=== PATIENT | male | born 1950 | race Caucasian/White ===

== ENCOUNTER 2016-10-22 13:04 | Observation (INO) | payer MEDICARE, BC ==
[2016-10-22] MEDS ORDERED: Acetaminophen TAB* 325 MG PO PRN (14:06)
[2016-10-22] MEDS ORDERED: NS 0.9% 1000 ML* 1,000 ML IV SCH (14:15)
[2016-10-22 15:29] LABS: Hematocrit 42 % (42-52); Hemoglobin 14.1 g/dl (14.0-18.0); Mean Corpuscular HGB Conc 33 g/dl (31-36); Mean Corpuscular Hemoglobin 33 pg (27-31); Mean Corpuscular Volume 98 fL (80-94); Mean Platelet Volume 7 um3 (7.4-10.4); Red Blood Count 4.32 10^6/ul (4.0-5.4); Red Cell Distribution Width 13 % (10.5-15); White Blood Count 13.5 10^3/ul (3.5-10.8)
[2016-10-22 16:00] LABS: Albumin 3.9 g/dL (3.2-5.2); BUN/Creatinine Ratio 11.5 (8-20); C Reactive Protein 68.15 mg/L (< 5.00); Calcium 9.4 mg/dL (8.6-10.3); EGFR African American 83.2 (>60); EGFR Non-African American 64.7 (>60); Globulin 3.8 g/dL (2-4); Potassium 4.5 mmol/L (3.5-5.0); Total Protein 7.7 g/dL (6.4-8.9)
--- NOTE | 2016-10-22 16:12 | ADMNOTE ---
Subjective Date of Service: 10/22/16 Interval History: ADMISSION HISTORY AND PHYSICAL EXAM: Allergies Allergy/AdvReac Type Severity Reaction Status Date / Time Iohexol [From Omnipaque] Allergy Mild Rash And Verified 12/16/15 15:58 Itching Shellfish Allergy Allergy Rash And Verified 12/16/15 15:58 Itching Iodine AdvReac Rash And Verified 12/16/15 15:58 Itching COCONUT Allergy ANAPHYLAXIS Uncoded 12/16/15 15:58 ENVIRONMENTAL/SEASONAL Allergy SNEEZE Uncoded 12/16/15 15:58 HAYFEVER EXTREME HEAT AdvReac SEVERE Uncoded 12/16/15 15:58 HYPERTENSION Home Medications Medication Instructions Recorded Confirmed Type Gabapentin CAP(*) [Neurontin 600 mg PO TID 11/21/12 07/14/14 History CAP(*)] Omeprazole CAP* [PriLOSEC CAP*] 20 mg PO BID 11/21/12 07/14/14 History Polyethylene Glycol 3350* 17 gm PO QAM 11/21/12 07/14/14 History [Miralax*] Irbesartan 150 mg PO QAM 02/05/13 07/14/14 History traMADol TAB* [Ultram*] 50 mg PO BID 02/05/13 07/14/14 History Lidocaine PATCH 5%* [Lidoderm 5% 2 patch TRANSDERM DAILY 02/18/13 07/14/14 History Patch*] Alfuzosin ER (NF) [Uroxatral (NF)] 10 mg PO QPM 06/21/14 07/14/14 History Tramadol-Acetaminophen [Tramadol 1 tab PO QPM 06/24/14 07/14/14 History Hydrochloride/AC 37.5-325 mg] HPI: The patient's main c/o is difficulty voiding and voiding small amounts for the past few weeks. He has also had pain 15 min after eating and some pain in the left flank. He has had nausea and states he has lost 9 lbs in the past few weeks. He was Family History: Findings - Mother age 93. One sister A&W. Social History: Findings - Lives with his who is his SDM. No children. Smoked in college. No alcohol abuse. Past Medical History: Unchanged from Admission - C-spine surgery,appy, ureteral stent, L arm tendon repair Review of Systems - Measurements Intake and Output: Intake and Output Last 24 Hours 10/20/16 10/21/16 10/22/16 10/23/16 06:59 06:59 06:59 06:59 Intake Total 0 Balance 0 Intake: Oral 0 Other: # Bowel Movements 0 - Review of Systems Constitutional Symptoms: Positive: Weight Loss - 9 lbs Dermatology: Positive: Normal HEENT: Positive: Normal Eyes: Positive: Normal Thyroid: Positive: Normal Pulmonary: Positive: Normal Cardiology: Positive: Normal Gastroenterology: Positive: Abdominal Pain, Anorexia Genital - Urinary: Positive: Other - decreased urine volume Musculoskeletal: Negative: Joint Pain, Joint Stiffness, Arthritis, Osteoporosis, Low Back Pain , Sciatica, Joint Deformities, Kyphoscoliosis, Other Endocrinology: Positive: Normal Hematologic/Lymphatic: Negative: Anemia, Easy Brusing, Hx Leukemia, Hx Lymphoma, Use of Anticoagulant, Use of Antiplatelet Drugs, Other Neurology: Positive: Normal Psychiatry: Positive: Normal Allergic/Immunologic: Negative: Hx Anaphylaxis, Hx Angioedema, Hx Environmental, Hx Seasonal, Athsma, Hx HIV, Immunocompromise, Swollen Glands LymphNodes, Other Objective Active Medications: Acetaminophen (Tylenol Tab*) 650 mg PO Q6H PRN PRN Reason: pain/fever Sodium Chloride (Ns 0.9% 1000 Ml*) 1,000 mls @ 125 mls/hr IV PER RATE THO Vital Signs 10/22/16 13:59 Temperature 97.9 F Pulse Rate 86 Respiratory 14 Rate Blood Pressure 134/81 (mmHg) O2 Sat by Pulse 96 Oximetry Oxygen Devices in Use Now: None Appearance: Alert, sitting up in bed. In good spirits. Looks comfortable. Eyes: No Scleral Icterus Ears/Nose/Mouth/Throat: Clear Oropharnyx, Mucous Membranes Moist Neck: NL Appearance and Movements; NL JVP, No Thyroid Enlargement, Masses Respiratory: Symmetrical Chest Expansion and Respiratory Effort, Clear to Auscultation, Clear to Percussion Cardiovascular: NL Sounds; No Murmurs; No JVD, RRR, No Edema, - Abdominal: NL Sounds; No Tenderness; No Distention, No Hepatosplenomegaly, - Extremities: No Edema, No Clubbing, Cyanosis, - Skin: No Rash or Ulcers, No Nodules or Sclerosis, - Neurological: Alert and Oriented x 3, NL Sensation Result Diagrams: 10/22/16 15:15 10/22/16 15:15 Assess/Plan/Problems-Billing Assessment: - Patient Problems (1) Flank pain Current Visit: Yes Status: Acute Code(s): R10.9 - UNSPECIFIED ABDOMINAL PAIN SNOMED Code(s): 548951419 Comment: US L kidney ordered. (2) Prostatitis Current Visit: Yes Status: Acute Code(s): N41.9 - INFLAMMATORY DISEASE OF PROSTATE, UNSPECIFIED SNOMED Code(s): 9970922 Comment: Continue po cipro. I will discuss with Dr. Tse. PVR 60 ml by bladder scan. (3) HTN (hypertension) Current Visit: Yes Status: Acute Code(s): I10 - ESSENTIAL (PRIMARY) HYPERTENSION SNOMED Code(s): 71208028 Comment: Continue home dose irbesartan (auto sub losartan). (4) Chronic pain Current Visit: Yes Status: Acute Code(s): G89.29 - OTHER CHRONIC PAIN SNOMED Code(s): 21814833 Comment: Continue home dose gabapentin, tramadol.
[2016-10-22 16:48] LABS: Erythrocyte Sed Rate 74 mm/Hr (0-40)
[2016-10-22] MEDS: traMADol TAB* 50 MG PO SCH ×2 (16:58→20:55)
[2016-10-22] MEDS: Acetaminophen TAB* 325 MG PO SCH (16:59)
[2016-10-22] MEDS ORDERED: Gabapentin CAP(*) 300 MG PO ONE (17:00)
--- NOTE | 2016-10-22 17:55 | RAD ---
Indication: LEFT flank and abdominal pain. Comparison: October 16, 2016 CT. Technique: LEFT unilateral renal ultrasound. Report: 12.7 x 5.4 x 4.6 cm LEFT kidney with variant lobular cortical contour unchanged from the prior CT and symmetric with the contralateral kidney on CT. Normal renal cortical echogenicity. No conspicuous focal renal lesions, stones, or hydronephrosis. No perinephric fluid evident. IMPRESSION: Negative LEFT unilateral renal ultrasound.
[2016-10-22] MEDS ORDERED: TRAMADOL ACETAMINOPHEN PO SCH (18:00)
[2016-10-22] MEDS ORDERED: ALFUZOSIN 10 MG PO SCH (18:00)
[2016-10-22] MEDS ORDERED: [UNRECOGNIZED DRUG - OTHER] PO SCH (18:00)
[2016-10-22] MEDS: Ciprofloxacin TAB* 500 MG PO SCH (20:55)
[2016-10-22] MEDS: Omeprazole CAP* 20 MG PO SCH (20:55)
[2016-10-22] MEDS: Gabapentin CAP(*) 300 MG PO SCH (20:56)
[2016-10-22] MEDS ORDERED: Lidocaine Patch REMOVE* 1 NOTE MISC PATCH OFF SCH (21:00)
[2016-10-22] MEDS ORDERED: Gabapentin CAP(*) 300 MG PO SCH (21:00)
[2016-10-22 22:19] LABS: Urine Bacteria Absent (Absent); Urine Bilirubin Negative (Negative); Urine Glucose Negative (Negative); Urine Nitrite Negative (Negative)
[2016-10-23 07:46] VITALS: BP 129/74
[2016-10-23] MEDS: Gabapentin CAP(*) 300 MG PO SCH ×2 (07:56→16:13)
[2016-10-23] MEDS: Omeprazole CAP* 20 MG PO SCH (07:57)
[2016-10-23] MEDS: traMADol TAB* 50 MG PO SCH ×2 (07:57→16:08)
[2016-10-23] MEDS: Ciprofloxacin TAB* 500 MG PO SCH (07:58)
[2016-10-23] MEDS ORDERED: Losartan TAB* 25 MG PO SCH (09:00)
[2016-10-23] MEDS ORDERED: Lidocaine PATCH 5%* 1 PATCH TRANSDERM SCH (09:00)
[2016-10-23] MEDS ORDERED: Polyethylene Glycol 3350* 17 GM PACKET PO SCH (09:00)
--- NOTE | 2016-10-23 11:23 | DCNOTE ---
Subjective Date of Service: 10/23/16 Interval History: Pain control adequate. Patient again states he has to push on his bladder to void. No new c/o. Family History: Findings - Mother age 93. One sister A&W. Social History: Findings - Lives with his who is his SDM. No children. Smoked in college. No alcohol abuse. Past Medical History: Unchanged from Admission - C-spine surgery,appy, ureteral stent, L arm tendon repair Objective Active Medications: Acetaminophen (Tylenol Tab*) 650 mg PO Q6H PRN PRN Reason: pain/fever Acetaminophen (Tylenol Tab*) 325 mg PO 1600 [facility] Last Admin: 10/22/16 16:59 Dose: 325 mg Alfuzosin HCl (Uroxatral (Nf)) 10 mg PO QPM [facility] Last Admin: 10/22/16 19:14 Dose: 10 mg Ciprofloxacin (Cipro Tab*) 500 mg PO Q12HR [facility] Last Admin: 10/23/16 07:58 Dose: 500 mg Gabapentin (Neurontin Cap(*)) 600 mg PO 0900,1600,2100 [facility] Last Admin: 10/23/16 07:56 Dose: 600 mg Lidocaine (Lidoderm 5% Patch*) 2 patch TRANSDERM DAILY [facility] Last Admin: 10/23/16 08:11 Dose: Not Given Omeprazole (Prilosec Cap*) 20 mg PO BID [facility] Last Admin: 10/23/16 07:57 Dose: 20 mg Pharmacy Profile Note (Lidocaine Patch Remove*) 1 note PATCH OFF 2100 [facility] Last Admin: 10/22/16 20:58 Dose: Not Given Polyethylene Glycol/Electrolytes (Miralax*) 17 gm PO QAM [facility] Last Admin: 10/23/16 07:56 Dose: 17 gm Tramadol HCl (Ultram*) 50 mg PO BID [facility] Last Admin: 10/23/16 07:57 Dose: 50 mg Tramadol HCl (Ultram*) 50 mg PO 1600 [facility] Last Admin: 10/22/16 16:58 Dose: 50 mg Vital Signs 10/22/16 10/22/16 10/22/16 13:32 13:59 16:58 Temperature 97.9 F Pulse Rate 86 Respiratory 18 14 17 Rate Blood Pressure 134/81 (mmHg) O2 Sat by Pulse 96 Oximetry 10/22/16 10/22/16 10/22/16 17:58 18:58 19:33 Temperature 97.8 F Pulse Rate 77 Respiratory 18 16 20 Rate Blood Pressure 144/65 (mmHg) O2 Sat by Pulse 96 Oximetry 10/22/16 10/22/16 10/22/16 20:00 20:55 20:56 Temperature Pulse Rate Respiratory 19 18 18 Rate Blood Pressure (mmHg) O2 Sat by Pulse Oximetry 10/22/16 10/22/16 10/22/16 22:55 22:56 23:47 Temperature 97.9 F Pulse Rate 76 Respiratory 18 19 16 Rate Blood Pressure 144/74 (mmHg) O2 Sat by Pulse 96 Oximetry 10/23/16 10/23/16 10/23/16 03:46 07:24 07:56 Temperature 98.2 F 97.9 F Pulse Rate 80 82 Respiratory 16 18 16 Rate Blood Pressure 125/75 129/74 (mmHg) O2 Sat by Pulse 96 95 Oximetry 10/23/16 10/23/16 07:57 08:00 Temperature Pulse Rate Respiratory 16 18 Rate Blood Pressure (mmHg) O2 Sat by Pulse Oximetry Oxygen Devices in Use Now: None Appearance: Alert, partly up in bed. In good spirits. Looks comfortable. Eyes: No Scleral Icterus Respiratory: Symmetrical Chest Expansion and Respiratory Effort, Clear to Auscultation, Clear to Percussion Cardiovascular: NL Sounds; No Murmurs; No JVD, RRR, No Edema, - Extremities: No Edema, No Clubbing, Cyanosis, - Skin: No Rash or Ulcers, No Nodules or Sclerosis, - Neurological: Alert and Oriented x 3, NL Sensation Result Diagrams: 10/22/16 15:15 10/22/16 15:15 Microbiology and Other Data: Microbiology 10/22/16 15:15 Aerobic Blood Culture - Final Blood Venous Bacillus Sp (Non-Anthracis) Assess/Plan/Problems-Billing Assessment: - Patient Problems (1) Flank pain Current Visit: Yes Status: Acute Code(s): R10.9 - UNSPECIFIED ABDOMINAL PAIN SNOMED Code(s): 864582210 Comment: US L kidney negative. (2) Prostatitis Current Visit: Yes Status: Acute Code(s): N41.9 - INFLAMMATORY DISEASE OF PROSTATE, UNSPECIFIED SNOMED Code(s): 7211571 Comment: Continue po cipro. Discussed with Dr. Tse. PVR 60 ml by bladder scan 10/22, repeat pending 10/23. (3) HTN (hypertension) Current Visit: Yes Status: Acute Code(s): I10 - ESSENTIAL (PRIMARY) HYPERTENSION SNOMED Code(s): 37497849 Comment: Continue home dose irbesartan (auto sub losartan). (4) Chronic pain Current Visit: Yes Status: Acute Code(s): G89.29 - OTHER CHRONIC PAIN SNOMED Code(s): 22174559 Comment: Continue home dose gabapentin, tramadol. (5) Prostatism Current Visit: Yes Status: Acute Code(s): N40.0 - BENIGN PROSTATIC HYPERPLASIA WITHOUT LOWER URINRY TRACT SYMP SNOMED Code(s): 70171993 Comment: Pt states tamsulosin made him pass out. Status and Disposition: Discharge this afternoon. Appt Dr. Tse November 25, 9 AM.
[2016-10-23] MEDS: Acetaminophen TAB* 325 MG PO SCH (16:09)
--- NOTE | 2016-10-23 19:03 | CONS ---
CONSULTATION NOTE: DATE OF CONSULT: 10/23/16 LOCATION: The patient is in room number 414. HISTORY OF PRESENT ILLNESS: I was asked by Dr. Du, from the hospitalist service, to see this 66-year-old white male because of acute prostatitis. I have been following Mr. Terry for the last 3 years because of recurrent prostatitis, bladder outlet obstruction and history of renal calculus disease. He was first evaluated in our office in December 2013 because of recurrent prostatitis. At that time he was treated with a course of Bactrim with improvement in his symptoms. Because of bladder outlet obstruction symptoms, he was placed on tamsulosin 0.4 mg daily. He noticed improvement in his voiding; however, he had side effects, feeling lightheadedness and almost passing out. The tamsulosin was discontinued and he was shifted to alfuzosin 10 mg daily with good response and no side effects. In March 2014, he had an office cystoscopy which showed moderate prostate enlargement, but the bladder wall looked normal. He presented to the emergency room on 06/21/14 with a right renal colic and was noted to have a 7-mm calculus at the ureteropelvic junction. He had urgent placement of a right ureteral stent. Few weeks later he had shockwave lithotripsy of the stone with the stent removal. Followup renal ultrasound showed him to be stone free. The patient continued to be maintained on the alfuzosin with good response. He was last seen in my office 4 months ago and at that time, the rectal exam showed a moderately enlarged but non-suspicious prostate. His bladder ultrasound showed complete bladder emptying and his urinalysis was negative. He was supposed to have a follow-up PSA because of an elevated PSA of 5.4, but he did not have it done. For the last 2 to 3 weeks, the patient has been complaining of urgency, frequency, burning on urination and perineal discomfort and pain. He did not have any gross hematuria and did not have any fever or chills. He was evaluated by Dr. Martines who started him on a course of Bactrim. He apparently developed interstitial nephritis on the Bactrim with decreased renal function. This resolved spontaneously after stopping his Bactrim and he was shifted to Cipro. Because of the persistent voiding symptoms with urgency and frequency, he was admitted yesterday for management. He had a renal ultrasound on admission, which was normal. His postvoid residual was about 70 cc. A consultation is being obtained for management of his prostatitis. His urine culture has been negative. His blood culture; however, is growing gram- positive cocci. I am not sure if this represents a true culture or is a skin contaminant. We will have to wait for the definitive culture result. Today, he reported some improvement in his voiding with less hesitancy, better stream, and feeling less perineal and scrotal pain and feeling he is emptying his bladder adequately. IMPRESSION: 1-The findings are consistent with prostatitis, which seems to be responding to Cipro. 2-Bladder outlet obstruction, on alfuzosin. PLAN: Plan is to continue with the same treatment. I recommended that the postvoid bladder ultrasound be repeated today to confirm his adequate bladder emptying. He will need to be maintained on the Cipro for at least another 2 weeks to clear up the prostatitis. He also will need to stay on the alfuzosin. I will follow him as an outpatient after his discharge, earlier if needed. [id number]/[facility] #: [id number] MTDD
--- NOTE | 2016-10-24 13:08 | DS ---
CC: Dr. Martines; Dr. Tse * DISCHARGE SUMMARY: DATE OF ADMISSION: 10/22/16 DATE OF DISCHARGE: 10/23/16 HISTORY OF PRESENT ILLNESS: This 66-year-old man was admitted because of his prostatitis. He complained of pain after drinking liquids. He complained of difficulty voiding and voiding small amounts. He also said he had some nausea and lost 9 pounds in the past few weeks. I note he had been given trimethoprim - sulfamethoxazole as an outpatient. He had a rise in his creatinine and potassium, and the medication was stopped after 2 days. He was then switched to ciprofloxacin which he has been on for about a day and a half to 2 days before admission. In the hospital, he had an ultrasound of the left kidney, which showed no significant abnormalities. Dr. Tse came and saw him. Dr. Tse has known him from previous office visits. He did not make any new recommendations. The patient will see Dr. Tse again in followup at 9 a.m. on 10/26/16. The patient had his oral ciprofloxacin continued while in the hospital. His pain control appeared adequate on his usual medications. The patient had a bladder scan on 10/22/16, having a postvoid residual of 60 mL. DISCHARGE DIAGNOSES: 1. Prostatitis. 2. Flank pain. 3. Hypertension. 4. Chronic pain syndrome. 5. Prostatism. DISCHARGE MEDICATIONS: 1. Ciprofloxacin 500 mg b.i.d. 2. Gabapentin 600 mg t.i.d. 3. Omeprazole 20 mg b.i.d. 4. Polyethylene glycol 17 g daily. 5. Tramadol 50 mg b.i.d. 6. Ultracet 1 daily at 4 p.m. 7. Lidocaine patch, 2 patches daily as prescribed. 8. Alfuzosin 10 mg h.s. [id number]/[facility] #: [id number] MTDD
== END 2016-10-23 17:10 | disposition home or self-care (01) ==
LOC: OBSVTOIN 13:17 → MED 13:17 → INTOOBSV 13:17
PROVIDERS: ADMIT Internal Medicine; ATTEND Internal Medicine
DX: N41.9 Inflammatory disease of prostate, unspecified (principal); R10.9 Unspecified abdominal pain; I10 Essential (primary) hypertension; G89.29 Other chronic pain; Z79.899 Other long term (current) drug therapy; Z88.8 Allergy status to other drugs, medicaments and biological substances; Z87.891 Personal history of nicotine dependence
CPT/HCPCS: 36415; 76775; 80053; 81003; 81015; 85025; 85652; 86140; 87040; 87077; 87205; A9270-GY; G0378

== ENCOUNTER 2018-01-13 23:13 | Observation (INO) | payer MEDICARE, BC ==
[2018-01-13] MEDS ORDERED: NS 0.9% 1000 ML* 1,000 ML IV ONE (23:15)
[2018-01-13] MEDS ORDERED: Ondansetron INJ* 2 MG/ML VIAL IV ONE (23:18)
[2018-01-13] MEDS ORDERED: Ketorolac INJ* 30 MG/ML 1 ML VIAL IV PUSH ONE (23:18)
--- NOTE | 2018-01-14 00:25 | RAD ---
EXAM: CT Abdomen and Pelvis Without Intravenous Contrast CLINICAL HISTORY: 67 years old, male; Pain; Abdominal pain; Flank; Other: Bilateral; Additional info: Fever, back pain TECHNIQUE: Axial computed tomography images of the abdomen and pelvis without intravenous contrast. All CT scans at this facility use at least one of these dose optimization techniques: automated exposure control; mA and/or kV adjustment per patient size (includes targeted exams where dose is matched to clinical indication); or iterative reconstruction. Coronal and sagittal reformatted images were created and reviewed. COMPARISON: A/P WO CT ABD/PEL W/O 10/16/2016 1:10 PM FINDINGS: Lung bases: There is minimal bibasilar atelectasis. ABDOMEN: Liver: Indeterminate low attenuating hepatic lesion in segment V measures 1 cm similar to prior study. Normal liver size. Gallbladder and bile ducts: Tiny calcified gallstones. No wall thickening or pericholecystic fluid. Pancreas: Normal. No ductal dilation. Spleen: Normal. No splenomegaly. Adrenals: Normal. No mass. Kidneys and ureters: Left upper pole simple renal cyst measures 1.7 cm (series 2, image 29) unchanged from prior study. Punctate nonobstructing renal calculus right lower pole. No pelvocaliectasis. Stomach and bowel: Incompletely distended grossly normal stomach. Normal caliber small bowel. Distal colonic diverticula without adjacent inflammatory changes or associated wall thickening. PELVIS: Appendix: Nonvisualized appendix with no secondary findings to suggest appendicitis. Bladder: Thin-walled bladder with no focal nodularity, perivesicular stranding, or calcifications. No stones. Reproductive: Moderate prostate enlargement. Normal seminal vesicles. ABDOMEN and PELVIS: Intraperitoneal space: Normal. No pneumoperitoneum. No ascities. Bones/joints: The spine demonstrates mild degenerative changes at multiple levels. Mild bilateral hip primary osteoarthritis. No fractures. No suspicious bone lesions. Soft tissues: Normal. No hernias. Vasculature: The aorta demonstrates moderate atherosclerotic calcification. No abdominal aortic aneurysm. Lymph nodes: Normal. No enlarged lymph nodes. IMPRESSION: 1. No CT findings to correlate with patient's symptomatology. Specifically no obstructing renal or ureteral calculi. 2. Simple left renal cyst and nonobstructing right renal calculi. 3. Cholelithiasis. 4. Distal colonic diverticulosis.
[2018-01-14 00:29] LABS: ABS Basophils 0.1 10^3/ul (0-0.2); ABS Eosinophils 0.1 10^3/ul (0-0.6); ABS Lymphocytes 0.8 10^3/ul (1.0-4.8); ABS Monocytes 0.7 10^3/ul (0-0.8); ABS Neutrophils 8.4 10^3/ul (1.5-7.7); ABS Nucleated RBC 0 10^3/ul; Eosinophil % 0.8 % (0-6); Hematocrit 41 % (42-52); Hemoglobin 14.6 g/dl (14.0-18.0); Lymphocyte % 7.6 % (25-47); Mean Corpuscular HGB Conc 35 g/dl (31-36); Mean Corpuscular Hemoglobin 33 pg (27-31); Mean Corpuscular Volume 93 fL (80-94); Mean Platelet Volume 6.4 um3 (7.4-10.4); Nucleated Red Blood Cells % 0.1; Platelet Count 363 10^3/ul (150-450); Red Blood Count 4.43 10^6/ul (4.00-5.40); Red Cell Distribution Width 13 % (10.5-15)
[2018-01-14 00:46] LABS: INR 1.08 (0.77-1.02)
[2018-01-14 01:05] LABS: EGFR Non-African American 73.5 (>60)
[2018-01-14 01:06] LABS: Urine Appearance Clear; Urine Blood Negative (Negative); Urine Color Yellow; Urine Ketones Negative (Negative); Urine Protein Negative (Negative); Urine Specific Gravity 1.016 (1.010-1.030); Urine Urobilinogen Negative (Negative)
--- NOTE | 2018-01-14 01:06 | ED ---
Back Pain - HPI Summary HPI Summary: Pt is a 67 y/o male who presents to the ED c/o back pain. He c/o fever, dizziness, wet cough, SOB, back pain, left flank pain, and nausea. Pt denies any vomiting, abdominal pain, or dysuria. He states he has no desire to drink liquids. PMHx kidney stones and sepsis. Dr. Martines wonders if he has an infected kidney stone. 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 Due to this disease, his L1-L6 and C1-C9 are crumbled. Pt is accompanied by his sister. - History of Current Complaint Chief Complaint: EDFever Stated Complaint: FEVER/DIZZY Time Seen by Provider: 01/13/18 23:37 Hx Obtained From: Patient Onset/Duration: Gradual Onset, Still Present Timing: Constant Back Pain Location: Is Diffuse Severity Currently: Mild Pain Intensity: 2 Pain Scale Used: 0-10 Numeric Aggravating Symptom(s): Movement Alleviating Symptom(s): Nothing Associated Signs And Symptoms: Positive: Negative Related History: Previous Back Injury - Allergies/Home Medications Allergies/Adverse Reactions: Allergies Allergy/AdvReac Type Severity Reaction Status Date / Time coconut Allergy Anaphylatic Verified 01/13/18 23:22 Shock tamsulosin Allergy See Comment Verified 01/13/18 23:22 iohexol [From Omnipaque] AdvReac Rash And Verified 01/13/18 23:22 Itching shellfish derived AdvReac Hives Verified 01/13/18 23:22 ENVIRONMENTAL/SEASONAL Allergy SNEEZE Uncoded 01/13/18 23:23 HAYFEVER EXTREME HEAT AdvReac SEVERE Uncoded 01/13/18 23:23 HYPERTENSION Home Medications: Home Medications Atorvastatin* [Lipitor*] 20 mg PO DAILY 01/14/18 [History Confirmed 01/14/18] Gabapentin [Neurontin] 100 mg PO QID 01/14/18 [History Confirmed 01/14/18] Irbesartan (NF) [Avapro (NF)] 150 mg PO BID 01/14/18 [History Confirmed 01/14/18 ] celeCOXIB CAP* [Celebrex CAP*] 100 mg PO BID 01/14/18 [History Confirmed ] PMH/Surg Hx/FS Hx/Imm Hx Endocrine/Hematology History: Denies: Hx Diabetes Cardiovascular History: Reports: Hx Coronary Artery Disease - CHOLESTEROL CONTROL WITH MEDS, Hx Hypercholesterolemia, Hx Hypertension - ON MEDICATION / AFFECTED BY TEMPERATURE, Other Cardiovascular Problems/Disorders - ELEVATED CHOLESTEROL DOES NOT TAKE MEDS Denies: Hx Pacemaker/ICD Respiratory History: Reports: Hx Pneumonia, Hx Sleep Apnea - " SAYS YES" NO TESTING, Other Respiratory Problems/Disorders - HX OF PNEUMONIA YEARS AGO, FOR SEVERAL MONTHS, emphysema Denies: Hx Asthma GI History: Reports: Hx Ulcer, Other GI Disorders - OCCASIONAL CONSTIPATION - ON MEDS History: Reports: Hx Kidney Infection, Hx Kidney Stones Denies: Hx Renal Disease Comment Only: Other Problems/Disorders - BPH Musculoskeletal History: Reports: Hx Back Problems, Other Musculoskeletal History - deteriorated c1-c6 and l1-L6 Denies: Hx Arthritis, Hx Osteoporosis Sensory History: Reports: Hx Contacts or Glasses, Hx Vision Problem, Hx Hearing Problem Denies: Hx Deafness, Hx Hearing Aid Opthamlomology History: Reports: Hx Contacts or Glasses, Hx Vision Problem Neurological History: Reports: Hx Nerve Disease, Other Neuro Impairments/ Disorders Psychiatric History: Denies: Hx Panic Disorder - Surgical History Surgery Procedure, Year, and Place: 1966 & 1963 LEFT WRIST GANGLION CYST REMOVED , [place]; 1999 C2-6 ARTHROS[place] [facility] [place] 1999 [place], [facility] [place] Lt ARM - TENDON REPA[place], [facility] [place] CYSTOSCOPY WITH RIGHT URETERAL STENT INSERTION, [facility] [place] ( STENT IS REMOVED PRESENTLY) Hx Anesthesia Reactions: Yes - 1999 SPINE SURGERY, NAUSEA Infectious Disease History: No Infectious Disease History: Denies: Traveled Outside the US in Last 30 Days - Family History Known Family History: Negative: Blood Disorder - Social History Alcohol Use: Occasionally Hx Substance Use: No Substance Use Type: Reports: None Hx Tobacco Use: Yes Smoking Status (MU): Former Smoker Amount Used/How Often: 2-3 CIGARETTES PER DAY Length of Time of Smoking/Using Tobacco: 2 YEARS Have You Smoked in the Last Year: No - 1968 Review of Systems Positive: Fever Positive: Shortness Of Breath, Cough Positive: Nausea. Negative: Abdominal Pain, Vomiting Positive: flank pain. Negative: dysuria Positive: Myalgia - Back pain Neurological: Other - Dizziness All Other Systems Reviewed And Are Negative: Yes Physical Exam - Summary Physical Exam Summary: Appearance: Well appearing, no pain distress Skin: hot, dry, reflects adequate perfusion, surgical scar on cervical and upper thoracic spine Head/face: normal Eyes: EOMI, TASNEEM ENT: mucous membranes moist, fillings in teeth Neck: supple, non-tender Respiratory: CTA, breath sounds present Cardiovascular: tachycardic with regular rhythm, pulses symmetrical, no LE edema Abdomen: non-tender, soft, no CVA tenderness Bowel Sounds: present Musculoskeletal: normal, strength/ROM intact Neuro: normal, sensory motor intact, A&Ox3 Triage Information Reviewed: Yes Vital Signs On Initial Exam: Initial Vitals Temp Pulse Resp BP Pulse Ox 103.1 F 116 20 164/87 93 01/13/18 23:16 01/13/18 23:16 01/13/18 23:16 01/13/18 23:16 01/13/18 23:16 Vital Signs Reviewed: Yes Diagnostics - Vital Signs Vital Signs Temp Pulse Resp BP Pulse Ox 01/14/18 00:02 111 26 95 01/13/18 23:45 117 24 140/81 94 01/13/18 23:44 125 19 94 01/13/18 23:16 103.1 F 116 20 164/87 93 - Laboratory Lab Results: Lab Results 01/13/18 01/13/18 01/13/18 Range/Units 23:53 23:53 23:54 WBC 10.0 (3.5-10.8) 10^3/ul RBC 4.43 (4.00-5.40) 10^6/ul Hgb 14.6 (14.0-18.0) g/dl Hct 41 L (42-52) % MCV 93 (80-94) fL MCH 33 H (27-31) pg MCHC 35 (31-36) g/dl RDW 13 (10.5-15) % Plt Count 363 (150-450) 10^3/ul MPV 6.4 L (7.4-10.4) um3 Neut % (Auto) 84.1 H (38-83) % Lymph % (Auto) 7.6 L (25-47) % Saunders % (Auto) 7.0 (0-7) % Eos % (Auto) 0.8 (0-6) % Baso % (Auto) 0.5 (0-2) % Absolute Neuts (auto) 8.4 H (1.5-7.7) 10^3/ul Absolute Lymphs (auto) 0.8 L (1.0-4.8) 10^3/ul Absolute Monos (auto) 0.7 (0-0.8) 10^3/ul Absolute Eos (auto) 0.1 (0-0.6) 10^3/ul Absolute Basos (auto) 0.1 (0-0.2) 10^3/ul Absolute Nucleated RBC 0 10^3/ul Nucleated RBC % 0.1 INR (Anticoag Therapy) 1.08 H (0.77-1.02) Sodium 133 L (135-145) mmol/L Potassium 4.3 (3.5-5.0) mmol/L Chloride 100 L (101-111) mmol/L Carbon Dioxide 24 (22-32) mmol/L Anion Gap 9 (2-11) mmol/L BUN Pending Creatinine Pending Est GFR ( Amer) Pending Est GFR (Non-Af Amer) Pending BUN/Creatinine Ratio Pending Glucose Pending Calcium 9.3 (8.6-10.3) mg/dL Total Bilirubin 1.60 H (0.2-1.0) mg/dL AST Pending ALT Pending Alkaline Phosphatase Pending Troponin I 0.01 (<0.04) ng/mL C-Reactive Protein Pending Total Protein Pending Albumin 4.1 (3.2-5.2) g/dL Globulin Pending Albumin/Globulin Ratio Pending Lipase Pending Result Diagrams: 01/13/18 23:53 01/13/18 23:53 Lab Statement: Any lab studies that have been ordered have been reviewed, and results considered in the medical decision making process. - Radiology CXR Xray Interpretation: Positive (See Comments) - Right middle lobe infiltrate. Pending official radiology report. Radiology Interpretation Completed By: ED Physician - CT CT A/P CT Interpretation: Positive (See Comments) - 1. No CT findings to correlate with patient's symptomatology. Specifically no obstructing renal or ureteral calculi. 2. Simple left renal cyst and nonobstructing right renal calculi. 3. Cholelithiasis. 4. Distal colonic diverticulosis. ED physician reviewed radiology report. CT Interpretation Completed By: Radiologist Lumbar Spine CT CT Interpretation: Positive (See Comments) - Mild multilevel lumbar spondylopathy. No additional findings to correlate with patient's symptomatology. ED physician reviewed radiology report. CT Interpretation Completed By: Radiologist - EKG 23:44 Cardiac Rate: Tachycardia - 114 bpm EKG Rhythm: Sinus Rhythm ST Segment: Normal EKG Interpretation: Nl axis, nl interval Re-Evaluation - Re-Evaluation First Eval Re-Evaluation Time: 02:38 Change: Unchanged Comment: O2 sat 89-89%. Back Pain Course/Dx - Course Course Of Treatment: Patient presents with high fever at 103, chills and back pain. He has a history of osteomyelitis of the spine. CT of the abdomen and pelvis, lumbar spine was negative. He did have a chest x-ray which shows a small infiltrate right base. IV Rocephin, Zithromax is given an IV fluid hydration. He was found to be hypoxic with O2 sat of 89-90 which will require admission. He is much more comfortable on 2 L of nasal cannula oxygen. Discussed the case with hospitalist who will evaluate and admit. - Diagnoses Differential Diagnosis/HQI/PQRI: Positive: Osteomyelitis, Renal Colic, Septic Arthritis, Other - UTI, urosepsis, endocarditis Provider Diagnoses: Sepsis, Right middle lobe pneumonia, Hypoxia - Critical Care Time Critical Care Time: 30-74 min - Critical care time is exclusive of separately billable procedures Discharge - Sign-Out/Discharge Documenting (check all that apply): Patient Departure - Admit - Discharge Plan Condition: Stable Disposition: ADMITTED TO [facility] - Billing Disposition and Condition Condition: STABLE Disposition: Admitted to [facility] - Attestation Statements Document Initiated by Scribe: Yes Documenting Scribe: Anusha Zapata Provider For Whom Cecille is Documenting (Include Credential): Papi Carlson MD Scribe Attestation: Anusha English, scribed for Papi Carlson MD on 01/14/18 at 0708. Scribe Documentation Reviewed: Yes Provider Attestation: The documentation as recorded by the Anusha loo accurately reflects the service I personally performed and the decisions made by me, Papi Carlson MD
[2018-01-14] MEDS ORDERED: cefTRIAXone(*) 1 GM in NS 0.9% 50 ML* 50 ML IVPB ONE (01:52)
--- NOTE | 2018-01-14 02:35 | RAD ---
EXAM: CT Lumbar Spine Without Intravenous Contrast CLINICAL HISTORY: 67 years old, male; Pain; Low back pain; Additional info: Fever, back pain TECHNIQUE: Axial computed tomography images of the lumbar spine without intravenous contrast. All CT scans at this facility use at least one of these dose optimization techniques: automated exposure control; mA and/or kV adjustment per patient size (includes targeted exams where dose is matched to clinical indication); or iterative reconstruction. COMPARISON: No relevant prior studies available. FINDINGS: Vertebrae: Normal lumbar lordosis without spondylolisthesis. Vertebral body heights are maintained. No fractures. Discs/spinal canal/neural foramina: L1-L2:There is no disc space narrowing. No canal stenosis or foraminal narrowing. The facet joints are normal. L2-L3: Mild disc height loss with symmetric disc bulge endplate osteophyte complex causing no canal stenosis.The facet joints are normal. No neural foraminal narrowing. L3-L4:There is no disc space narrowing. No canal stenosis or foraminal narrowing. The facet joints are normal. L4-L5: Mild symmetric disc bulge endplate osteophyte complex causing mild canal stenosis.The facet joints demonstrate mild degenerative hypertrophy and sclerosis. No neural foraminal narrowing. L5-S1: No disc height loss, disc bulge, or canal stenosis.The facet joints demonstrate mild degenerative hypertrophy and sclerosis. No neural foraminal narrowing. Soft tissues: Normal. No hernias. IMPRESSION: Mild multilevel lumbar spondylopathy. No additional findings to correlate with patient's symptomatology.
[2018-01-14] MEDS ORDERED: NS 0.9% 1000 ML* 1,000 ML IV ONE (02:41)
[2018-01-14] MEDS ORDERED: Albuterol/Ipratropium NEB.SOL* Albuterol 2.5 MG/Ipratropium 0.5 MG 3 ML INH ONE (02:41)
[2018-01-14] MEDS ORDERED: Albuterol 2.5 MG/3 ML NEB.SOL* (0.083%) INH PRN (04:35)
[2018-01-14] MEDS ORDERED: Azithromycin IV(*) 500 MG in NS 0.9% 250 ML* 250 ML IVPB ONE (04:35)
[2018-01-14] MEDS ORDERED: Al Hydrox/Mg Hydrox/Simet LIQ* 30 ML UDC PO PRN (04:37)
[2018-01-14] MEDS ORDERED: Senna TAB PO PRN (04:37)
[2018-01-14] MEDS ORDERED: Acetaminophen TAB* 325 MG PO PRN (04:37)
[2018-01-14] MEDS ORDERED: Docusate CAP* 100 MG PO PRN (04:37)
[2018-01-14] MEDS ORDERED: Ondansetron INJ* 2 MG/ML VIAL IV PRN (04:37)
[2018-01-14] MEDS: Heparin VIAL(*) 5000 UNITS/ML VIAL (FIVE THOUSAND) SUBCUT SCH ×3 (06:40→22:44)
[2018-01-14] MEDS: traMADol TAB* 50 MG PO SCH ×2 (06:40→17:11)
[2018-01-14] MEDS: celeCOXIB CAP* 100 MG PO SCH ×2 (08:03→19:36)
[2018-01-14] MEDS: Gabapentin CAP(*) 400 MG PO SCH ×3 (08:03→19:35)
[2018-01-14] MEDS: Omeprazole CAP* 20 MG PO SCH ×2 (08:04→19:36)
[2018-01-14] MEDS: Gabapentin CAP(*) 300 MG PO SCH ×3 (08:04→19:34)
[2018-01-14] MEDS: Polyethylene Glycol 3350* 17 GM PACKET PO SCH (08:05)
--- NOTE | 2018-01-14 08:32 | RAD ---
Indication: Fever. Emphysema. Previous pneumonia. Comparison: January 13, 2018 CT abdomen. Technique: Upright AP 0050 hours Report: Elevated lung volumes. Minimal prominence of the interstitial markings and bibasilar subsegmental atelectasis. Grossly clear pleural spaces. Negative for pneumothorax. The heart, pulmonary vasculature, and mediastinal contours are unremarkable. Negative for free air beneath the diaphragm. IMPRESSION: #. Stigmata of obstructive lung disease. Minimal basilar atelectasis. R2
[2018-01-14] MEDS ORDERED: Gabapentin CAP(*) 300 MG PO SCH (09:00)
[2018-01-14] MEDS: NS 0.9% 1000 ML* 1,000 ML IV SCH ×2 (12:00→20:55)
--- NOTE | 2018-01-14 15:50 | HP ---
CC: Manjula Martines MD HISTORY AND PHYSICAL: DATE OF ADMISSION: 01/14/18 TIME OF EVALUATION: 0500. PRIMARY CARE PHYSICIAN: Manjula Martines MD CHIEF COMPLAINT: Shortness of breath. HISTORY OF PRESENT ILLNESS: This is a 67-year-old male with past medical history of chronic pain, who presented to the emergency room with fever for the past 5 days starting on 01/10/18, T-max of 104. He also has left lower back pain, cough, shortness of breath, rigors, and chills. He has had some nausea, no vomiting. No congestion. No abdominal pain. He has had some constipation. No urinary symptoms other than his urinary frequency, which is his baseline from his BPH. He has had decreased p.o., only able to tolerate clears. No rash. No sick contacts. Otherwise, review of systems is negative. In the emergency room, the patient had labs, imaging. He was given 2 L of fluids, 4 mg of Zofran, Toradol 30 mg, ceftriaxone, albuterol neb, and referred to the hospitalist service for further evaluation. PAST MEDICAL HISTORY: 1. History of kidney stones. 2. History of osteomyelitis of the vertebrae. 3. Chronic pain due to history of spinal osteomyelitis. 4. BPH. 5. Constipation. 6. Hypertension. 7. Hyperlipidemia. 8. GERD. MEDICATIONS: 1. Neurontin 700 mg p.o. t.i.d. 2. Omeprazole 20 mg p.o. b.i.d. 3. Irbesartan 150 mg p.o. b.i.d. 4. Tramadol 50 mg p.o. b.i.d. 5. Atorvastatin 20 mg daily. 6. Celebrex 100 mg p.o. b.i.d. 7. Alfuzosin 10 mg p.o. at bedtime. 8. MiraLAX daily. ALLERGIES: COCONUT, TAMSULOSIN, IOHEXOL, SHELLFISH. Environmental, seasonal hay fever, extreme heat. FAMILY HISTORY: Mother at age 93 from congestive heart failure. Father at age 81 secondary to complications from being a prisoner of war in [place]. SOCIAL HISTORY: The patient lives at home with his , who is his healthcare proxy. He is a retired counselor, works as an dental resident. He states he works from 10 a.m. to 1 a.m. 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 He speaks 16 languages. He states he runs 6 to 9 miles a few times a week. He is a remote smoker back in the 1960s. He drinks whiskey a few times a week. No illicit drug use. CODE STATUS: Full code. REVIEW OF SYSTEMS: A 14-point review of systems as mentioned in the HPI, otherwise negative. PHYSICAL EXAMINATION GENERAL: No acute distress, resting comfortably. VITAL SIGNS: Temp, T-max 103.1, now 98.9; pulse rate 94; respiratory rate 18; oxygen saturation 97% on 2 L; blood pressure 98/49. HEENT: Head: Normocephalic. Pupils equal and reactive. Oropharynx: Mucous membranes are moist. Positive posterior oropharynx erythema, no exudate. NECK: Supple. No lymphadenopathy. No nuchal rigidity. RESPIRATORY: Diminished breath sounds. Faint bilateral expiratory wheezing. No increased work of breathing. CARDIAC: Regular rate and rhythm. Systolic murmur most prominent at the apex. ABDOMEN: Soft, nontender, nondistended. EXTREMITIES: No clubbing, cyanosis, or edema. +1 DPs. NEUROLOGIC: Alert and oriented x3. No gross focal neurological deficits. DIAGNOSTIC STUDIES/LAB DATA: White count 10, hemoglobin 14.6, hematocrit 41, platelets 363. INR is 1.08. Sodium 133, potassium 4.3, chloride 100, bicarb 24 , BUN 14, creatinine 1.01, glucose 109. CRP is 46. Urine is unremarkable. Radiographic data: Abdominal and pelvis CT shows no CT findings correlate with the patient's symptomatology, specifically no obstructing renal or ureteral calculi, simple left renal cyst and nonobstructing right renal calculi, cholelithiasis, distal colonic diverticulosis. Lumbar spine CT: Mid multilevel lumbar spondylopathy, no additional findings correlate with the patient's symptomatology. EKG: Sinus tachycardia with a rate of 114. Chest x-ray: Possible right middle lobe infiltrate on wet read. ASSESSMENT: This is a 67-year-old male, who presents to the emergency room with fevers, cough, and shortness of breath. Fever, cough, shortness of breath. Assessment: The patient's history and physical are most consistent with community-acquired pneumonia. He does meet sepsis criteria. He is on 2 L of oxygen with soft blood pressures as well. Plan: We will order sputum culture. I will check an influenza swab. Follow up on the blood cultures. Add azithromycin. Continue ceftriaxone and IV fluids. I will also continue him on albuterol inhaler as he may benefit as I do hear some wheezing on exam. If no clinical improvement, may consider prednisone and further workup and imaging. CHRONIC MEDICAL PROBLEMS: 1. BPH. Continue his alfuzosin. 2. GERD. Continue omeprazole. 3. Chronic pain. Continue his tramadol, gabapentin, Celebrex. 4. Hyperlipidemia. Continue atorvastatin. 5. Hypertension. Hold his irbesartan in the setting of soft blood pressure. FEN: Place the patient on a regular diet with his IV fluids. DVT prophylaxis: The patient scores high risk. Place him on heparin subcu t.i.d. Code status: Full code. TIME SPENT: Greater than 50 minutes was spent doing the history and physical, more than half the time was spent in direct patient contact. [id number]/[facility]PS #: [id number] JOSÉ
--- NOTE | 2018-01-14 16:20 | PN ---
Hospitalist Progress Note Date of Service: 01/14/18 I have seen and examined Mr. Terry with his at the bedside. Agree with current treatment for community acquired pneumonia. He is already feeling better today. While his CXR is not suggestive of it, I would keep ILD on the differential for him given his subacute presentation of sob and fox and recurrent pneumonia. If still hypoxic tomorrow, would consider a CT chest. Wean O2, follow up sputum and blood cultures. I have requested records from his neurologist at [facility] who follows him for spinal osteomyelitis (they say this has been treated for the past 20 years and is a result of dolphin strep from [place]).
[2018-01-14] MEDS ORDERED: Atorvastatin* 20 MG TAB PO SCH (17:00)
[2018-01-14] MEDS ORDERED: cefTRIAXone(*) 1 GM in NS 0.9% 50 ML* 50 ML IVPB SCH (17:00)
[2018-01-14] MEDS ORDERED: Azithromycin IV(*) 250 MG in NS 0.9% 250 ML* 250 ML IVPB SCH (17:00)
[2018-01-14] MEDS ORDERED: CMC:Alfuzosin ER (NF) 10 MG TAB.ER PO SCH (21:00)
[2018-01-15] MEDS: traMADol TAB* 50 MG PO SCH (05:19)
[2018-01-15] MEDS: Heparin VIAL(*) 5000 UNITS/ML VIAL (FIVE THOUSAND) SUBCUT SCH (05:20)
[2018-01-15] MEDS: NS 0.9% 1000 ML* 1,000 ML IV SCH (05:21)
[2018-01-15 06:37] LABS: ABS Basophils 0 10^3/ul (0-0.2); ABS Eosinophils 0.4 10^3/ul (0-0.6); ABS Lymphocytes 2.1 10^3/ul (1.0-4.8); ABS Monocytes 1.2 10^3/ul (0-0.8); ABS Neutrophils 4.3 10^3/ul (1.5-7.7); ABS Nucleated RBC 0 10^3/ul; Eosinophil % 5.2 % (0-6); Hematocrit 35 % (42-52); Hemoglobin 12.2 g/dl (14.0-18.0); Lymphocyte % 25.7 % (25-47); Mean Corpuscular HGB Conc 35 g/dl (31-36); Mean Corpuscular Hemoglobin 33 pg (27-31); Mean Corpuscular Volume 93 fL (80-94); Mean Platelet Volume 6.4 um3 (7.4-10.4); Nucleated Red Blood Cells % 0; Platelet Count 278 10^3/ul (150-450); Red Blood Count 3.72 10^6/ul (4.00-5.40); Red Cell Distribution Width 14 % (10.5-15)
[2018-01-15 06:56] LABS: EGFR Non-African American 96.1 (>60)
[2018-01-15] MEDS: Gabapentin CAP(*) 300 MG PO SCH (09:08)
[2018-01-15] MEDS: celeCOXIB CAP* 100 MG PO SCH (09:08)
[2018-01-15] MEDS: Gabapentin CAP(*) 400 MG PO SCH (09:09)
[2018-01-15] MEDS: Omeprazole CAP* 20 MG PO SCH (09:09)
[2018-01-15] MEDS: Polyethylene Glycol 3350* 17 GM PACKET PO SCH (09:09)
[2018-01-15 11:52] VITALS: BP 145/66
--- NOTE | 2018-01-15 16:51 | PN ---
Hospitalist Progress Note Date of Service: 01/15/18 . HOSPITALIST DISCHARGE NOTE: See dc instructions and summary by me. Patient stable for dc dc instructions reviewed with the patient at the bedside. DC patient home today.
--- NOTE | 2018-01-16 05:54 | DS ---
DISCHARGE SUMMARY: DATE OF ADMISSION: 01/14/18 DATE OF DISCHARGE: 01/15/18 STATUS DURING HOSPITALIZATION: Observation. PRIMARY CARE PROVIDER: Dr. Manjula Martines. PRINCIPAL DISCHARGE DIAGNOSIS: Community-acquired pneumonia. SECONDARY DIAGNOSES: 1. History of renal lithiasis. 2. Chronic osteomyelitis of his vertebrae (by report). 3. Chronic pain secondary to history of spinal osteomyelitis. 4. Benign prostatic hypertrophy. 5. Constipation. 6. Hypertension. 7. Hyperlipidemia. 8. Gastroesophageal reflux disease. DISCHARGE MEDICATIONS: New: 1. Ceftin 500 mg by mouth twice daily for 5 days, then stop. 2. Azithromycin 500 mg by mouth daily for 5 days, then stop. Continued: 1. Neurontin 700 mg by mouth 3 times daily. 2. Omeprazole 20 mg by mouth twice daily. 3. Irbesartan 150 mg by mouth twice daily. 4. Tramadol 50 mg by mouth twice daily. 5. Atorvastatin 20 mg by mouth daily. 6. Celebrex 100 mg by mouth twice daily. 7. Alfuzosin 10 mg by mouth at bedtime. 8. MiraLAX one capsule by mouth twice daily. HISTORY OF PRESENT ILLNESS AND HOSPITAL COURSE: Please see the H and P by Dr. Chayo Pitt as well as the ED documentation of the day of admission 01/14/18. In brief, Mr. Terry is a pleasant 67-year-old gentleman with past medical history as noted below who had fever for 5 days prior to admission including a T -max of approximately 104 degrees Fahrenheit. The patient complains of myalgias and rigors. He had some nausea, but no vomiting. There was no congestion. He denied abdominal pain, but was constipated. There were no urinary symptoms. He had decreased oral intake and was only able to tolerate clear liquids. There was no skin rash. The patient came to the emergency room and received a 2 L normal saline bolus, Zofran, Toradol, and IV antibiotics ( ceftriaxone, azithromycin). He also received albuterol nebs and was referred for admission. He was subjectively doing better by the point of admission, but still far too weak to go home. The patient had pain, and so he had an abdomen and pelvis CT that did not show any CT findings correlating with the patient's symptomatology. There was no obstructing renal or ureteral calculi. There was a simple left renal cyst, however, and nonobstructing right renal calculi, cholelithiasis, and distal colonic diverticulosis noted. His lumbar spine CT showed multi-level lumbar spondylopathy, but no additional findings to correlate with the patient's symptomatology. The patient did have a chest x-ray that showed a right middle lobe infiltrate on the initial read and this was corroborated by the official read. The patient continued on antibiotics and did well. He was not having any further difficulty and was stable for discharge midday on 01/15/18. He is being discharged to home in stable condition. He is to follow up with his primary care provider in the outpatient setting: Dr. Manjula Martines. He was given written ED instructions to come back to the hospital for any worrisome symptoms including but not limited to shortness of breath, high fevers, or worsening symptomatology, and he said he would comply with the instruction. TIME SPENT: Total time take to discharge Mr. Terry was 45 minutes; greater than half the time was spent at the bedside. [id number]/CPS #: [id number] MTDD
== END 2018-01-15 13:18 | disposition home or self-care (01) ==
LOC: ED 23:13 → MEDTELE 01-14 04:37
PROVIDERS: ADMIT Pediatrics; ATTEND Internal Medicine
DX: J18.9 Pneumonia, unspecified organism (principal); N40.0 Benign prostatic hyperplasia without lower urinary tract symptoms; I10 Essential (primary) hypertension; E78.5 Hyperlipidemia, unspecified; K21.9 Gastro-esophageal reflux disease without esophagitis; I25.10 Atherosclerotic heart disease of native coronary artery without angina pectoris; Z79.899 Other long term (current) drug therapy; R06.02 Shortness of breath; Z88.8 Allergy status to other drugs, medicaments and biological substances; Z87.891 Personal history of nicotine dependence; R00.0 Tachycardia, unspecified
CPT/HCPCS: 36415; 71045; 72131; 74176; 80048; 80053; 81003; 83605; 83690; 84484; 85025; 85610; 86140; 87040; 87070; 87205; 93005; 96361; 96365; 96366; 96372; 96375; 99285; A9270-GY; G0378; J0456; J0696; J1644; J1885; J2405

== ENCOUNTER 2019-06-17 09:43 | Day surgery (SDC) | payer MEDICARE ==
[~2019-06-17 09:43] MED LIST: Acetaminophen TAB* 325 MG PO PRN; Buffered Lidocaine 1% SYRIN* 1 ML/SYRINGE INTRADERM ONE
[2019-06-17] MEDS ORDERED: Ketorolac 0.5% OPHTH (NF) 0.5 % 5 ML BTL ONE (09:57)
[2019-06-17] MEDS ORDERED: Phenylephrine OPHTH SOL 2.5%* 2 ML ONE (09:57)
[2019-06-17] MEDS ORDERED: Neomycin/Polymy/Dex OPTH.SUSP* MAXITROL 0.1% 5 ML ONE (09:57)
[2019-06-17] MEDS ORDERED: Cyclopentolate 1% OPTH.SOL* 2 ML BTL ONE (09:57)
[2019-06-17] MEDS ORDERED: acetaZOLAMIDE TAB* 250 MG ONE (09:57)
[2019-06-17] MEDS ORDERED: Lidocaine 1% MPF ** 5 ML VIAL ONE (09:57)
[2019-06-17] MEDS ORDERED: Lidocaine 2% w/ EPI 1:200,000* 20 ML SDV VIAL ONE (09:57)
[2019-06-17] MEDS ORDERED: Proparacaine 0.5% OPHTH.SOL* 15 ML BTL ONE (09:57)
[2019-06-17] MEDS ORDERED: Povidone Iodine 5% OPTH* 30 ML BTL ONE (09:57)
[2019-06-17] MEDS ORDERED: Midazolam* 1 MG/ML 2 ML VIAL (2 MG) ONE (10:59)
[2019-06-17 12:19] VITALS: BP 124/67
--- NOTE | 2019-06-17 15:26 | OP ---
DATE OF OPERATION: 06/17/19 - [facility] DATE OF : 48 SURGEON: Shad Asif M.D. PREOPERATIVE DIAGNOSIS: Cataract, right eye. POSTOPERATIVE DIAGNOSIS: Cataract, right eye. OPERATIVE PROCEDURE: Extracapsular cataract extraction with intraocular lens implant right eye. DESCRIPTION OF PROCEDURE: The patient was brought to the operating room after being given 1/2% Alcaine with epinephrine drops in the preoperative area. The eye was prepped and draped in the usual sterile fashion. Sterile drape and eyelid speculum were placed. Again, topical 1/2% Alcaine with epinephrine was given. A paracentesis incision was made at the 9 o'clock position with the No.75 blade. Clear cornea incision 2.2 x 2.2-mm was created at the 12 o'clock position starting at the anterior limbus using the 2.2-mm keratome. The anterior chamber was irrigated with 0.4 mL of 1% non-preservative intracameral lidocaine and filled with DisCoVisc. A capsulorrhexis was completed using the cystotome and the Utrata forceps. Hydrodissection was performed with balanced salt solution. The lens nucleus was removed with the Phacoemulsification handpiece without incident. Cortex was removed with the irrigation-aspiration handpiece. The capsular bag was re-inflated using DisCoVisc and an [id number] implant was inserted with the shooter. The irrigation-aspiration handpiece was used to remove all residual DisCoVisc. The eye was refilled with balanced salt solution and the wound checked and found to be watertight. Topical Maxitrol drops were given. [id number]/[facility] #: [id number] [facility]
== END 2019-06-17 11:38 | disposition home or self-care (01) ==
LOC: OREAST 09:43
PROVIDERS: ATTEND Specialist
DX: H25.811 Combined forms of age-related cataract, right eye (principal); I10 Essential (primary) hypertension; R09.02 Hypoxemia; Q00-Q99 Congenital malformations, deformations and chromosomal abnormalities; Z87.891 Personal history of nicotine dependence; E78.5 Hyperlipidemia, unspecified; J67.9 Hypersensitivity pneumonitis due to unspecified organic dust
CPT/HCPCS: A9270-GY; J2250; V2632

== ENCOUNTER 2019-06-24 11:02 | Day surgery (SDC) | payer MEDICARE ==
[~2019-06-24 11:02] MED LIST changes: +Cyclopentolate 1% OPTH.SOL* 2 ML BTL ONE; +Ketorolac 0.5% OPHTH (NF) 0.5 % 5 ML BTL ONE; +Lidocaine 1% MPF ** 5 ML VIAL ONE; +Lidocaine 2% w/ EPI 1:200,000* 20 ML SDV VIAL ONE; +Neomycin/Polymy/Dex OPTH.SUSP* MAXITROL 0.1% 5 ML ONE; +Phenylephrine OPHTH SOL 2.5%* 2 ML ONE; +Povidone Iodine 5% OPTH* 30 ML BTL ONE; +Proparacaine 0.5% OPHTH.SOL* 15 ML BTL ONE; +acetaZOLAMIDE TAB* 250 MG ONE
[2019-06-24] MEDS ORDERED: Midazolam* 1 MG/ML 2 ML VIAL (2 MG) ONE ×2 (12:29→13:02)
[2019-06-24 13:52] VITALS: BP 121/81
--- NOTE | 2019-06-24 14:34 | OP ---
DATE OF OPERATION: 06/24/2019 - [facility] DATE OF : 1950. SURGEON: Shad Asif M.D. PREOPERATIVE DIAGNOSIS: Cataract left eye. POSTOPERATIVE DIAGNOSIS: Cataract left eye. OPERATIVE PROCEDURE: Extracapsular cataract extraction with intraocular lens implant left eye. DESCRIPTION OF PROCEDURE: The patient was brought to the operating room after being given 1/2% Alcaine with epinephrine drops in the preoperative area. The eye was prepped and draped in the usual sterile fashion. Sterile drape and eyelid speculum were placed. Again, topical 1/2% Alcaine with epinephrine was given. A paracentesis incision was made at the 3 o'clock position with the No.75 blade. Clear cornea incision 2.2 x 2.2-mm was created at the 6 o'clock position starting at the anterior limbus using the 2.2-mm keratome. The anterior chamber was irrigated with 0.4 mL of 1% non-preservative intracameral lidocaine and filled with DisCoVisc. A capsulorrhexis was completed using the cystotome and the Utrata forceps. Hydrodissection was performed with balanced salt solution. The lens nucleus was removed with the Phacoemulsification handpiece without incident. Cortex was removed with the irrigation-aspiration handpiece. The capsular bag was re-inflated using DisCoVisc and an SN60WF 13.5 implant was inserted with the shooter. The irrigation-aspiration handpiece was used to remove all residual DisCoVisc. The eye was refilled with balanced salt solution and the wound checked and found to be watertight. Topical Maxitrol drops were given. [id number]/[facility] #: [id number] MTDD
== END 2019-06-24 13:45 | disposition home or self-care (01) ==
LOC: OREAST 11:02
PROVIDERS: ATTEND Specialist
DX: H25.812 Combined forms of age-related cataract, left eye (principal); H43.813 Vitreous degeneration, bilateral; Z87.891 Personal history of nicotine dependence; I10 Essential (primary) hypertension; E78.5 Hyperlipidemia, unspecified; R06.02 Shortness of breath; Z99.81 Dependence on supplemental oxygen
CPT/HCPCS: A9270-GY; J2250; V2632